=== PATIENT | male | born 1985 | race Caucasian/White ===

== ENCOUNTER 2019-06-20 09:16 | Emergency (ER) | payer OTHER ==
[~2019-06-20] VITALS: Ht 172.7 cm; Wt 68.0 kg
[~2019-06-20 09:16] MED LIST: NOHOMEMEDICATIONS
[2019-06-20 09:22] VITALS: BP 146/101
[2019-06-20] MEDS ORDERED: CIPROFLOXIN HC2.5 M1 OPHTHALMIC (09:52)
== END 2019-06-20 10:02 | disposition home or self-care (01) ==
LOC: M.ERS 09:16
DX: H10.9 Unspecified conjunctivitis (principal); Z90.89 Acquired absence of other organs

== ENCOUNTER 2019-06-23 17:01 | Emergency (ER) | payer OTHER ==
[~2019-06-23] VITALS: Ht 172.7 cm; Wt 68.0 kg
[~2019-06-23 17:01] MED LIST changes: +CIPROFLOXIN HC2.5 M1 OPHTHALMIC
[2019-06-23 17:40] LABS: ABSOLUTE MONOCYTES 0.5 thou/uL (0.0-1.2); ABSOLUTE NEUTROPHILS 6.6 thou/uL (1.6-8.1); BASOPHILS 0.4 %; EOSINOPHILS 0.2 %; HEMATOCRIT 45.3 % (42.0-52.0); HEMOGLOBIN 15.9 gm/dL (14.0-18.0); LYMPHOCYTES 21.4 %; MCH 31.5 pg (26.0-34.0); MCHC 35.1 g/dL (28.0-37.0); MCV 89.9 fL (80.0-100.0); MPV 8.1 fl. (7.2-11.1); NUCLEATED RBCS 0 /100WBC; PLATELET COUNT* 294 thou/uL (150-400); RBC 5.04 mil/uL (4.50-6.00); WBC 9.1 thou/uL (4.0-11.0)
[2019-06-23 17:47] LABS: ANION GAP 10 mmol/L (7-16); BUN 11 mg/dL (7-18); CALCIUM 9.1 mg/dL (8.5-10.1); CHLORIDE 98 mmol/L (98-107); CO2 29 mmol/L (21-32); CREATININE 1.1 mg/dL (0.6-1.3); GLUCOSE 120 mg/dL (70-99); POTASSIUM 3.7 mmol/L (3.5-5.1); SODIUM 137 mmol/L (136-145)
[2019-06-23 17:52] LABS: APTT 28.2 Seconds (25.0-31.3); INR 0.9; PROTIME 9.7 Seconds (9.20-11.50)
[2019-06-23 18:01] LABS: ALBUMIN 3.9 g/dL (3.4-5.0); ALKALINE PHOSPHATASE 87 U/L (46-116); CK-MB MASS < 0.5 ng/mL (<0.5-3.6); LIPASE 111 U/L (73-393); MAGNESIUM 2.1 mg/dL (1.8-2.4); NT-PRO BRAIN NAT PEPTIDE 26 pg/mL (<300); SGOT 22 U/L (15-37); SGPT 49 U/L (30-65); TOTAL BILIRUBIN 0.2 mg/dL (<0.1-1.0); TOTAL PROTEIN 7.9 g/dL (6.4-8.2); TROPONIN-I LEVEL <0.06 ng/mL (<0.06)
[2019-06-23] MEDS ORDERED: TOBRADEX EYE DRO5 ML OPHTHALMIC (18:52)
[2019-06-23] MEDS ORDERED: NORCO 5-325 TA1 EAC1 PO (18:52)
[2019-06-23] MEDS ORDERED: PREDNISONE 20 M20 M1 PO (18:52)
[2019-06-23] MEDS ORDERED: AMOXICILLIN 50500 MG PO (18:58)
[2019-06-23 19:02] VITALS: BP 146/72
--- NOTE | 2019-06-24 17:07 | EKG ---
[place] [address] ELECTROCARDIOGRAM REPORT Name: SANJUANA SORIANO Room: [facility]#: [id number] Admission: 06/23/19 Attend Phys: Discharge: 06/23/19 Date of : 85 Report #: [id number] THIS REPORT FOR: //name// [facility] ED Test Date: 2019-06-23 Test Time: 17:10:00 Pat Name: SANJUANA SORIANO Department: Room: Gender: M [employer] Super[employer]: CORTEZ : 1985 Requested By: Paul Rizo Order Number: [id number] MD: Ken Sotomayor Measurements Intervals [place] Rate: 78 P: 68 [place]: 147 QRS: 70 QRSD: 90 T: 31 QT: 357 QTc: 407 Interpretive Statements Sinus rhythm Probable left atrial enlargement Baseline wander in lead(s) II,III,aVL,aVF No previous ECG available for comparison Electronically Signed On 06-24-2019 17:06:51 CDT by Ken Sotomayor [email or web address] <ELECTRONICALLY SIGNED> By: Ken Sotomayor MD, [facility] 06/24/19 1706 09 09 Ken Sotomayor MD, FACC /EPI
== END 2019-06-23 19:06 | disposition home or self-care (01) ==
LOC: M.ERS 17:01
PROVIDERS: Family Medicine
DX: H10.9 Unspecified conjunctivitis (principal); R07.89 Other chest pain; Z90.89 Acquired absence of other organs